=== PATIENT | female | born 1985 | race Two or more races ===

== ENCOUNTER 2022-01-08 16:06 | Inpatient (IN) ==
[2022-01-08] MEDS ORDERED: LACTATED RINGER'S 1,000 ML IV PRN (16:23)
[2022-01-08] MEDS ORDERED: OXYTOCIN 30 UNITS/500 ML BAG IV PRN ×3 (16:23→21:10)
[2022-01-08] MEDS ORDERED: ePHEDrine sulfate 50 MG/ML AMP ONE (16:30)
[2022-01-08] MEDS ORDERED: SODIUM CHLORIDE 0.9% INJ 10 ML VIAL ONE (16:30)
[2022-01-08] MEDS ORDERED: fentaNYL citrate 100 MCG/2 ML VIAL ONE (16:30)
[2022-01-08] MEDS ORDERED: BUPIVACAINE 0.25% 30 ML VIAL ONE ×2 (16:30→18:43)
[2022-01-08] MEDS ORDERED: fentaNYL 2MCG/ML ROPIVACAINE 1.25MG/ML 100 ML BAG EPI ONE (16:31)
--- NOTE | 2022-01-08 16:34 | History & Physical Report ---
Date of Service January 08, 2022 Assessment & Plan (1) Supervision of elderly multigravida: Plan: IUP at term in active labor patient requesting epidural analgesia- we will try to accomodate her anticipate vaginal History of Present Illness Primary Care Provider: NO PCP Patient is a 36 yo female EDC 01/14/22 who presents in active labor at 8 cm dilated. membranes intact. GBS negative Allergies Allergy/AdvReac Type Severity Reaction Status Date / Time No Known Allergies Allergy Verified 01/04/22 09:35 Home Medications Medication Instructions Recorded Confirmed Type prenat.vits,jonah,[id number] 1 tab PO DAILY 05/29/21 01/04/22 History Patient History Medical History History of varicella IUD contraception Surgical History No history of previous surgery Family History Mother Asthma Denies family history of Ovarian cancer Prostate cancer Myocardial infarction Breast cancer Colorectal cancer Social History Smoking Status: Never smoker Second Hand Exposure: Yes; Hx Alcohol Use: No Hx Substance Use: No Preferred Language: Gambian Visual Impairment: No Limitations Hearing Ability: Normal marital status: marital status details: Thi (46) [phone] Current Living Situation: Family Current Living Situation Comment: lives with spouse and childen current occupational status: student Feels Safe at Home: Yes Childhood Exposure to Second-Hand Smoke: Yes Dental Care, Regularly: Yes Physical Activity Frequency: 3-4 Times per Week Seatbelt Use: always Sunscreen Use: No Review of Systems All systems reviewed & are unremarkable except as noted in HPI & below Physical Exam Constitutional: WD/WN, vitals as above Psychiatric: A+Ox3, euthymic affect Genitourinary: OB Exam Abdomen: + vertex and + regular contractions Manual OB Exam: + cervical dilation 8 cm, + cervical effacement 90% and + station -2 OB Exam Monitor Tracing: + external FHT monitor used, + external uterine monitor used, + category I and + normal FHT variability AROM for clear fluid Coding Level of Care Code None Diagnoses Supervision of elderly multigravida O09.529
[2022-01-08 16:56] LABS: Hematocrit (blood only) 37.9 % (37-47); Hemoglobin 12.7 g/dL (12.0-16.0); Mean Corpuscular Hemoglobin 29.6 pg (25-34); Mean Corpuscular Hgb Conc 33.5 g/dL (32-36); Mean Corpuscular Volume 88.3 fL (80-100); Platelet Count 234 K/uL (130-400); RDW Coefficient of Variation 14.7 % (11.5-14.5); RDW Standard Deviation 47.8 fL (36.4-46.3); Red Blood Count 4.29 M/uL (4.2-5.4); White Blood Count 8.62 K/uL (4.8-10.8)
--- NOTE | 2022-01-08 17:10 | Anesthesiology Consultation ---
Date of Service January 08, 2022 Assessment & Plan (1) Encounter for pre-operative examination: Chart Review Chart Review: Patient NOT seen in Pre Admission Testing and Acceptable Risk for Labor Epidural Consults Requested none ASA ASA2E Proposed Anesthesia Anesthesia Type: Spinal Risk / Benefits Reviewed With: PT / POA / Parent / Guardian, Accepts Plan and Informed Consent Obtained History Height/Weight Height: 5 ft 1.81 in Weight: 100.244 kg Allergies Allergy/AdvReac Type Severity Reaction Status Date / Time No Known Allergies Allergy Verified 01/08/22 17:09 Medications Home Medications Medication Instructions Recorded Confirmed Last Taken prenat.vits,jonah,[id number] 1 tab PO DAILY 05/29/21 01/04/22 Unknown NPO Date Last Intake of Fluids: 01/08/22 Time Last Intake of Fluids: 17:10 Date Last Intake of Solids: 01/08/22 Time Last Intake of Solids: 17:11 Past Medical History Medical History History of varicella IUD contraception Exercise / Class Metabolic Activity II 4-5 Yardwork/Stairs/Walk up hill Negative for chest pain or shortness of breath. Past Family History Family History Mother Asthma Denies family history of Ovarian cancer Prostate cancer Myocardial infarction Breast cancer Colorectal cancer Past Surgical History Surgical History No history of previous surgery Past Anesthesia History No Hx of Anesthesia Complications History of PONV No Hx of PONV Social History Smoking Status: Never smoker Hx Alcohol Use: No Hx Substance Use: No Review of Systems denies history of bleeding disorder or blood thinners Patient denies numbness, tingling or weakness in lower extremities. Physical Exam Vital Signs Last Vital Signs Pulse 96 H 01/08/22 16:55 BP 131/87 01/08/22 16:54 Pulse Ox 98 01/08/22 16:55 Constitutional not obese (gravid) ENMT Mouth: no TMJ abnormality and oral opening not small Thyromental Distance: > or= 3.5 Finger Breadths Mallampati Class: II Neck normal visual inspection; neck extension not limited Respiratory normal respiratory effort Cardiovascular Rate/Rhythm: regular rate Neurologic moves all extremities Psychiatric Orientation: alert and oriented x 3 Testing Laboratory Results 01/08/22 16:32
[2022-01-08] MEDS ORDERED: diphenhydrAMINE 50 MG/ML VIAL IV PRN (17:28)
[2022-01-08] MEDS ORDERED: NALOXONE HCL 0.4 MG/1 ML VIAL/CARP IV PRN (17:28)
[2022-01-08] MEDS ORDERED: NALOXONE HCL 1 MG in SODIUM CHLORIDE 0.9% 1000ML 1,000 ML IV PRN (17:28)
[2022-01-08] MEDS ORDERED: NALBUPHINE HCL INJ 10 MG/ML AMP IV PRN (17:28)
[2022-01-08] MEDS ORDERED: ePHEDrine sulfate 50 MG/ML AMP IV PRN (17:28)
[2022-01-08] MEDS ORDERED: ONDANSETRON INJ 2 MG/ML 2 ML VIAL IV PRN (19:10)
[2022-01-08] MEDS ORDERED: fentaNYL 2MCG/ML ROPIVACAINE 1.25MG/ML 100 ML BAG EPI PRN (19:10)
[2022-01-08] MEDS ORDERED: HYDROCORTISONE ACETATE 25 MG SUPP PR PRN (21:10)
[2022-01-08] MEDS ORDERED: bisacodyL 10 MG SUPP PR PRN (21:10)
[2022-01-08] MEDS ORDERED: DIPHTHERIA/TETANUS/PERTUSSIS 0.5 ML SYR/VIAL IM ONE (21:10)
[2022-01-08] MEDS ORDERED: BENZOCAINE 20% AER SPR 82.5 GM CAN EXT PRN (21:10)
[2022-01-08] MEDS ORDERED: oxyCODONE/ACETAMINOPHEN 5mg/325mg TAB PO PRN (21:10)
[2022-01-08] MEDS ORDERED: ACETAMINOPHEN 325 MG TAB PO PRN (21:10)
--- NOTE | 2022-01-08 21:32 | Delivery Summary ---
Vaginal Delivery Summary Date of Service January 08, 2022 Vaginal Delivery Summary [facility] Patient is a 36-year-old 5 para 4-0-0-4 female EDC of 01/14/2022 who presented in active labor. She was 8 cm upon arrival in labor and delivery and requesting epidural analgesia. It was felt she would deliver imminently if her water would be ruptured. Membranes were ruptured for clear fluid. She continued to remain at 8 cm dilated and intrathecal fentanyl was given with relief for about 1 hour. After hydration her contractions had begun to space out and Pitocin augmentation was begun. She then received epidural analgesia which worked effectively. She then progressed to full dilation and . Through 1 push she delivered a viable female over intact perineum. After the head was delivered the rest of the delivered easily and was placed on the mother's abdomen for further attention and drying. The infant was vigorous and moving all 4 limbs. After approximately 1 minute the cord was clamped and cut. The placenta was then expressed intact with a three-vessel cord. bleeding was controlled with dilute Pitocin and fundal massage. Perineum was noted to be intact with a superficial abrasion of the left labia minora. Estimated blood loss was 200 cc. Mother and infant were doing well after delivery. MNP Vaginal Delivery Charge Delivery Type Details: [facility]
[2022-01-08] MEDS ORDERED: SODIUM CHLORIDE 0.9% 250 ML IV PRN (21:50)
--- NOTE | 2022-01-08 22:10 | Anesthesia Procedure Note ---
Date of Service January 08, 2022 Anesthesia Post Epidural Note Vital Signs Vital Signs: Temp Pulse Resp BP Pulse Ox 36.7 C 94 H 18 130/77 100 01/08/22 19:06 01/08/22 22:01 01/08/22 22:00 01/08/22 22:01 01/08/22 21:09 Pain Intensity Bilateral Abdomen: Pain Intensity: 0 Notes Mental Status: alert / awake / arousable and participated in evaluation Nausea / Vomiting: adequately controlled Pain: adequately controlled Airway Patency, RR, SpO2: stable & adequate BP & HR: stable & adequate Hydration State: stable & adequate Neuraxial Anesthesia: was administered and sensory block is resolving Anesthetic Complications: no major complications apparent and Pt Satisfied with anesthetic care Epidural: Removed without complications and With tip intact Notes: Epidural site clean, dry and intact. No signs of edema, erythema or bruising at insertion site. Pt instructed to request anesthesia if she has residual lower extremity numbness or if she develops lower extremity pain or weakness, back pain or headache.
[2022-01-09] MEDS ORDERED: CALCIUM CARBONATE 500 MG CHEWABLE TAB PO ONE (04:31)
--- NOTE | 2022-01-09 06:37 | Obstetrical Progress Note ---
Date of Service <Lu RazaDO - Last Filed: 01/09/22 07:48> January 09, 2022 Assessment & Plan <Lu RyDO - Last Filed: 01/09/22 07:48> (1) Encounter for care and examination after delivery: 36 yo post op day1 from complicated by elderly multigravida, doing well. -Continue routine post care. -vital signs reviewed and WNL (Tmax 36.8) -Blood Type O+, GBS-, Rubella immune -Encourage ambulation, monitor and control pain with Motrin, tylenol PRN, resume regular diet, monitor lochia -encourage breast feeding -hemoglobin 12.7 Day #:: 1 <Stephanie Guerra MD, FACOG - Last Filed: 01/09/22 11:17> (1) Encounter for care and examination after delivery: Subjective <Lu RyDO - Last Filed: 01/09/22 07:48> Ambulation: limited ambulation Voiding: no voiding problems Passing Gas:: Yes Diet Tolerance:: regular diet Lochia:: Large Feeding Type:: breast feeding Current Pain Level(1-10): 2 Review of Systems Denies fever, chills, sweats Denies shortness of breath, difficulty breathing, chest pain, palpitations, chest pressure. Denies breast pain. Denies dysuria. Denies headache or changes in vision. Physical Exam <Lu RyDO - Last Filed: 01/09/22 07:48> General: Alert, oriented. No acute distress. Cardiac: Regular rate and rhythm, no murmurs/rubs/gallops. Respiratory: Clear to auscultation bilaterally a/p, no wheezes/rales/rhonchi. No increased work of breathing. Symmetrical chest rise. No respiratory distress. Abdomen: Soft, nontender, nondistended. Bowel sounds present. Uterus: Uterine fundus firm, palpable at umbilicus. Lower Extremities: No lower extremity edema or swelling. No deep calf pain. Liang's negative bilaterally.. Results & Data ([facility]) <Lujayjay Raza DO - Last Filed: 01/09/22 07:48> Vital Signs (Past 12 Hours) Vital Signs Temp Pulse Pulse Resp BP BP Pulse Ox 01/09/22 03:47 36.8 C 100 H 16 122/75 97 01/09/22 00:30 36.8 C 82 18 110/72 01/09/22 00:02 109 H 128/73 01/08/22 23:22 105 H 117/82 01/08/22 23:15 105 H 18 117/82 01/08/22 22:45 18 120/57 L 01/08/22 22:31 173 H 120/57 L 01/08/22 22:17 97 H 131/63 01/08/22 22:15 18 120/57 L 01/08/22 22:01 94 H 130/77 01/08/22 22:00 94 H 18 130/77 01/08/22 21:48 93 H 118/65 01/08/22 21:45 95 H 18 123/58 L 01/08/22 21:31 95 H 123/58 L 01/08/22 21:30 95 H 20 123/58 L 01/08/22 21:18 106 H 108/66 01/08/22 21:15 95 H 18 123/58 L 01/08/22 21:09 93 H 100 01/08/22 21:04 98 H 98 01/08/22 21:01 87 111/57 L 01/08/22 21:00 106 H 91 01/08/22 20:59 106 H 100 01/08/22 20:54 91 H 100 01/08/22 20:49 89 99 01/08/22 20:47 95 H 117/73 01/08/22 20:44 88 100 01/08/22 20:39 85 100 01/08/22 20:34 84 100 01/08/22 20:33 112 H 158/65 H 01/08/22 20:30 18 01/08/22 20:29 95 H 100 01/08/22 20:24 113 H 100 01/08/22 20:20 116 H 92 01/08/22 20:19 113 H 95 01/08/22 20:18 92 H 119/78 01/08/22 20:14 116 H 100 01/08/22 20:09 97 H 100 01/08/22 20:04 111 H 74 L 01/08/22 20:01 106 H 111/65 01/08/22 20:00 18 01/08/22 19:59 120 H 99 01/08/22 19:54 102 H 99 01/08/22 19:49 106 H 98 01/08/22 19:48 96 H 119/76 01/08/22 19:44 90 99 01/08/22 19:39 100 H 99 01/08/22 19:34 127 H 100 01/08/22 19:31 95 H 119/74 01/08/22 19:30 20 01/08/22 19:29 106 H 99 01/08/22 19:26 130 H 110/66 01/08/22 19:24 120 H 99 01/08/22 19:21 127 H 153/66 H 01/08/22 19:19 111 H 99 01/08/22 19:14 114 H 98 01/08/22 19:10 103 H 105/66 01/08/22 19:09 102 H 101/64 98 01/08/22 19:07 104 H 106/66 01/08/22 19:06 36.7 C 18 01/08/22 19:05 100 H 110/67 01/08/22 19:04 105 H 98 01/08/22 19:03 105 H 119/72 01/08/22 19:01 104 H 130/60 01/08/22 18:59 104 H 100 01/08/22 18:54 101 H 98 01/08/22 18:49 99 H 99 01/08/22 18:44 96 H 97 01/08/22 18:38 108 H 99 <Stephanie Guerra MD, FACOG - Last Filed: 01/09/22 11:17> Co-Signing Physician Notes Resident Physician Supervision Note: I interviewed and examined the patient. Discussed with Dr. Raza and agree with findings and plan as documented in the note. Any exceptions or clarifications are listed here: [None] Documented By: Stephanie Guerra MD, FACOG Resident Activity Tracking <Lu Raza DO - Last Filed: 01/09/22 07:48> Resident Involvement: Resident Care Provided Care Provided: Adult Hospital Medicine and OB Delivery
[2022-01-09 06:38] LABS: Hematocrit (blood only) 35.7 % (37-47); Hemoglobin 11.9 g/dL (12.0-16.0); Mean Corpuscular Hemoglobin 29.5 pg (25-34); Mean Corpuscular Hgb Conc 33.3 g/dL (32-36); Mean Corpuscular Volume 88.4 fL (80-100); Mean Platelet Volume 11.4 fL (7.4-10.4); Platelet Count 185 K/uL (130-400); RDW Coefficient of Variation 14.8 % (11.5-14.5); RDW Standard Deviation 48.4 fL (36.4-46.3); Red Blood Count 4.04 M/uL (4.2-5.4); White Blood Count 9.68 K/uL (4.8-10.8)
[2022-01-09] MEDS: FAMOTIDINE 20 MG TAB PO SCH (07:21)
[2022-01-09] MEDS: IBUPROFEN 600 MG TAB PO PRN ×3 (11:52→23:32)
[2022-01-09] MEDS: CALCIUM CARBONATE 500 MG CHEWABLE TAB PO PRN (19:00)
[2022-01-09] MEDS: DOCUSATE SODIUM 100 MG CAP PO SCH ×2 (19:01→19:02)
[2022-01-09] MEDS: PRENATAL VITAMIN 1 TAB PO SCH (19:02)
[2022-01-09] MEDS ORDERED: bisacodyL 5 MG TABEC PO SCH (20:00)
[2022-01-10 01:27] VITALS: TEMP 98.1
[2022-01-10] MEDS: CALCIUM CARBONATE 500 MG CHEWABLE TAB PO PRN (05:22)
[2022-01-10 06:39] LABS: Hematocrit (blood only) 37.3 % (37-47); Hemoglobin 12.4 g/dL (12.0-16.0)
[2022-01-10] MEDS: DOCUSATE SODIUM 100 MG CAP PO SCH (08:18)
[2022-01-10] MEDS: IBUPROFEN 600 MG TAB PO PRN ×2 (08:18→14:15)
[2022-01-10] MEDS: PRENATAL VITAMIN 1 TAB PO SCH (08:18)
[2022-01-10] MEDS: FAMOTIDINE 20 MG TAB PO SCH (08:44)
--- NOTE | 2022-01-10 09:19 | Obstetrical Progress Note ---
Date of Service January 10, 2022 Assessment & Plan (1) state: Routine pp care and ready for d/c home, instructions reviewed Subjective Ambulation: ambulating normally Voiding: no voiding problems Passing Gas:: Yes Diet Tolerance:: regular diet Lochia:: Small Feeding Type:: bottle feeding Current Pain Level(1-10): 0 Physical Exam Constitutional WD/WN, vitals as above Eyes PERRL, conjunctivae normal, anicteric sclerae ENMT external ear and nose normal, oropharynx normal Neck trachea midline, no thyromegaly Respiratory normal respiratory effort and able to speak in complete sentences; no respiratory distress, no labored breathing and does not use accessory muscles Cardiovascular Rate/Rhythm: regular rate and regular rhythm Extremities: no calf tenderness and no pedal edema Chest (Breasts) Breast: normal inspection of breasts Gastrointestinal (Abdomen) Inspection/Auscultation: abdomen normal to inspection; abdomen not distended Musculoskeletal no cyanosis or clubbing, extremities motor strength 5/5 Skin no rashes, warm and dry Neurologic patellar DTR's 2+ bilat, sensation intact Psychiatric A+Ox3, euthymic affect Genitourinary Speculum/Bimanual Exam: uterus nontender OB Exam Abdomen: + fundal height (at umbilicus) Fundus: + firm Results & Data ([facility]) Vital Signs (Past 12 Hours) Vital Signs Temp Pulse Resp BP 01/09/22 23:45 98.1 F 98 H 16 122/75
[2022-01-10 10:08] VITALS: BP 117/75; PULSE 84; O2SAT 98
== END 2022-01-10 16:25 | disposition home or self-care (01) | DRG 807 ==
LOC: OPB 16:06 → 4S1 16:08 → 4E2 01-09 00:15